=== PATIENT | female | born 1995 | race Caucasian/White ===

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

== ENCOUNTER 2017-05-24 04:19 | Emergency (ER) | payer OTHER ==
[2017-05-24 05:51] VITALS: BP 127/66
[2017-05-24 07:07] LABS: Benzodiazepine Urine Screen None Detected (None Detect)
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
== END 2017-05-24 05:51 | disposition home or self-care (01) ==
LOC: ED 04:19
DX: F10.129 Alcohol abuse with intoxication, unspecified (principal); Y90.7 Blood alcohol level of 200-239 mg/100 ml
CPT/HCPCS: 36415; 80307; 80320; 99281; G0480

== ENCOUNTER 2018-05-22 18:41 | Emergency (ER) | payer OTHER ==
[2018-05-22 18:46] VITALS: BP 135/84
--- NOTE | 2018-05-22 19:17 | UC ---
Throat Pain/Nasal Aurelio HPI - HPI Summary HPI Summary: Sore throat fever and cough for >1 week - History of Current Complaint Chief Complaint: UCRespiratory Stated Complaint: SORE THROAT,COUGH Time Seen by Provider: 05/22/18 18:50 Hx Obtained From: Patient Hx Last Menstrual Period: MIDDLE APRIL ?: No Onset/Duration: Sudden Onset, Lasting Weeks - 1 Pain Intensity: 6 Pain Scale Used: 0-10 Numeric Cough: Nonproductive Associated Signs & Symptoms: Positive: Fever - subjective - Allergies/Home Medications Allergies/Adverse Reactions: Allergies Allergy/AdvReac Type Severity Reaction Status Date / Time No Known Allergies Allergy Verified 05/22/18 18:47 Home Medications: Home Medications Ibuprofen TAB* [Advil TAB*] 600 mg PO PRN 05/22/18 [History] guaiFENesin ER TAB [Mucinex*] 600 mg PO PRN 05/22/18 [History] PMH/Surg Hx/FS Hx/Imm Hx Previously Healthy: Yes - Surgical History Surgical History: Yes Surgery Procedure, Year, and Place: EARS - TUBES age 4 - Family History Known Family History: Positive: None Negative: Seizure Disorder - Social History Occupation: Student Lives: Dormitory/Roommates Alcohol Use: Occasionally Substance Use Type: None Smoking Status (MU): Never Smoked Tobacco Review of Systems All Other Systems Reviewed And Are Negative: Yes Constitutional: Positive: Fever - subjective, Chills Skin: Positive: Negative Eyes: Positive: Negative ENT: Positive: Sore Throat Respiratory: Positive: Cough Cardiovascular: Positive: Negative Gastrointestinal: Positive: Negative Genitourinary: Positive: Negative Motor: Positive: Negative Neurovascular: Positive: Negative Musculoskeletal: Positive: Negative Neurological: Positive: Negative Psychological: Positive: Negative Is Patient Immunocompromised?: No Physical Exam Triage Information Reviewed: Yes Appearance: Well-Appearing, No Pain Distress, Well-Nourished Vital Signs: Initial Vital Signs Temp 98.2 F 05/22/18 18:44 Pulse 67 05/22/18 18:44 Resp 16 05/22/18 18:44 BP 135/84 05/22/18 18:44 Pulse Ox 100 05/22/18 18:44 Vital Signs Reviewed: Yes Eye Exam: Normal Eyes: Positive: Conjunctiva Clear ENT Exam: Normal ENT: Positive: Normal ENT inspection, Hearing grossly normal, Pharyngeal erythema, TMs normal, Uvula midline. Negative: Nasal congestion, Nasal drainage , Tonsillar swelling, Tonsillar exudate, Trismus, Hoarse voice, Dental tenderness, Sinus tenderness Dental Exam: Normal Neck exam: Normal Neck: Positive: Supple, Nontender, No Lymphadenopathy Respiratory Exam: Normal Respiratory: Positive: Chest non-tender, Lungs clear, Normal breath sounds, No respiratory distress, No accessory muscle use Cardiovascular Exam: Normal Cardiovascular: Positive: RRR, No Murmur, Pulses Normal, Brisk Capillary Refill Musculoskeletal Exam: Normal Musculoskeletal: Positive: Strength Intact, ROM Intact, No Edema Neurological Exam: Normal Neurological: Positive: Alert, Muscle Tone Normal Psychological Exam: Normal Skin Exam: Normal Diagnostics - Laboratory Diagnostic Studies Completed/Ordered: RST (-) Throat Pain/Nasal Course/Dx - Course Assessment/Plan: tylenol, ibuprofen increase fluids follow at [facility] or with pcp prn - Differential Dx/Diagnosis Provider Diagnosis: Viral pharyngitis Discharge - Sign-Out/Discharge Documenting (check all that apply): Patient Departure All imaging exams completed and their final reports reviewed: No Studies - Discharge Plan Condition: Stable Disposition: HOME Patient Education Materials: Pharyngitis (ED), Viral Syndrome (ED) Referrals: Cam Iverson DO [Primary Care Provider] - If Needed - Billing Disposition and Condition Condition: STABLE Disposition: Home
== END 2018-05-22 19:30 | disposition home or self-care (01) ==
LOC: UCEAST 18:41
DX: J02.8 Acute pharyngitis due to other specified organisms (principal)
CPT/HCPCS: 87651; 99211; G0463